=== PATIENT | female | born 2000 | race Caucasian/White ===

== ENCOUNTER → 2019-06-12 | Outpatient (CLI) | payer OTHER, BC ==
[~2019-06-12] MED LIST: CEFD300 PO; CEFT18SU PO; IBUP200; TYLENOL FLU; Vitafol-Ob+Dha1 EACH PO; [UNRECOGNIZED DRUG - OTHER]
== END | disposition home or self-care (01) ==
LOC: LAB SHORT 10:50 → LAB EV 10:50
DX: N39.0 Urinary tract infection, site not specified (principal)
CPT/HCPCS: 87077; 87086; 87186

== ENCOUNTER 2019-06-13 16:58 | Inpatient (IN) | payer OTHER, BC ==
[~2019-06-13] VITALS: Ht 157.5 cm; Wt 87.8 kg
[~2019-06-13 16:58] MED LIST changes: -CEFD300 PO
[2019-06-13] MEDS ORDERED: CEFD300 PO (19:31)
--- NOTE | 2019-06-14 06:27 | NUR ---
SHIFT SUMMARY PT NEW ADMIT THIS AM. AAOX4. NPO. DISCOMFORT CONTROLLED WITH 1MG IV DILAUDID Q2P. NO NAUSEA/EMESIS SINCE ARRIVAL TO FLOOR. ORIENTED TO ROOM + CALL LIGHT USE. INDEPENDENT IN ROOM. MOTHER + SIGNIFICANT OTHER AT BEDSIDE THIS AM. SURGICAL PACKET ON FRONT OF CHART. PT RESTING AT THIS TIME WITH CALL LIGHT IN REACH.
--- NOTE | 2019-06-14 10:48 | NUR ---
06/14/19 1048 Keren Martinez PT ON SCHEDULED ANTIBIOTICS
--- NOTE | 2019-06-14 15:47 | NUR ---
SHIFT SUMMARY PT A&OX4, VSS, S/P LAP REKHA, 4 SITES, SYDNEE DRAIN SEROSANG 120 MLS OUT. PAIN MANAGED WITH 1 MG DILAUDID. LUNA PO, DENIES N&V. AWAITING POST OP VOID. IMAGES REQUESTED TO BE COPIED AND PUSHED TO [facility]; AWAITING ORDER TO TRANSFER PT FOR ERCP. FAMILY AT BEDSIDE.
--- NOTE | 2019-06-14 17:55 | NUR ---
PT TRANSFERRED TO [facility] #[id number], REPORT CALLED TO CHANI SILVERMAN [phone].
[2019-06-15 07:07] LABS: HBSAG SCREEN Negative (Negative); HEP A AB, IGM Negative (Negative); HEP B CORE AB, IGM Negative (Negative); HEP C VIRUS AB <0.1 (0.0-0.9)
== END 2019-06-14 17:57 | disposition home or self-care (01) | DRG 419 ==
LOC: ER 16:58 → SURS 21:18
PROVIDERS: Physician Assistant; ADMIT Surgery
PROC: BF03YZZ Plain Radiography of Gallbladder and Bile Ducts using Other Contrast (ICD-10-PCS; 2019-06-14)
PROC: 0FT44ZZ Resection of Gallbladder, Percutaneous Endoscopic Approach (ICD-10-PCS; principal; 2019-06-14 09:00)
DX: K80.70 Calculus of gallbladder and bile duct without cholecystitis without obstruction (principal); E80.6 Other disorders of bilirubin metabolism; Z91.018 Allergy to other foods; Z91.010 Allergy to peanuts
CPT/HCPCS: 36415; 74300; 76705; 80074; 81025; 86308; C1729; C1894; J1100; J1170; J1885; J2250; J2405; J2543; J2704; J2765; J3010; J7030; J7120

== ENCOUNTER → 2019-06-13 | Outpatient (CLI) | payer OTHER, BC ==
[2019-06-13 16:11] LABS: Alanine Aminotransfer (ALT/SGP 884 U/L (12-78); Albumin, Blood 3.9 g/dL (3.4-5.0); Albumin/Globulin Ratio 0.9 (0.8-1.8); Alk Phos 188 U/L (40-126); Anion Gap 12 mmol/L (6-16); Aspartate Aminotrans (AST/SGOT 461 U/L (12-37); Blood Urea Nitrogen 6 mg/dL (8-24); Bun/Creatinine Ratio 7.7 (12.0-20.0); CO2, Blood 26 mmol/L (21-32); Calcium, Blood 9.1 mg/dL (8.5-10.1); Chloride, Blood 105 mmol/L (98-108); Creatinine, Blood 0.78 mg/dL (0.40-1.00); Globulin, Blood 4.4 g/dL (2.2-4.0); Glomerular Filtration Rate >60 (60-); Glucose, Blood 107 mg/dL (70-99); Potassium, Blood 3.9 mmol/L (3.5-5.5); Sodium, Blood 143 mmol/L (136-145); Total Protein, Blood 8.3 g/dL (6.4-8.2)
[2019-06-13 16:39] LABS: BASOPHILS ABSOLUTE AUTO 0.08 K/mm3 (0.00-0.23); BASOPHILS PERCENT AUTO 1 % (0-2); EOSINOPHILS PERCENT AUTO 1 % (0-6); Hematocrit 47.2 % (33.0-51.0); Hemoglobin 15.4 g/dL (11.5-16.0); IMMATURE GRAN ABSOLUTE AUTO 0.03 K/mm3 (0.00-0.10); IMMATURE GRAN PERCENT AUTO 0 % (0-1); LYMPHOCYTES ABSOLUTE AUTO 0.87 K/mm3 (0.84-5.20); LYMPHOCYTES PERCENT AUTO 9 % (21-46); MONOCYTES ABSOLUTE AUTO 0.67 K/mm3 (0.16-1.47); MONOCYTES PERCENT AUTO 7 % (4-13); Mean Corpuscular HGB 26.2 pg (26.0-34.0); Mean Corpuscular HGB Conc 32.6 g/dL (31.5-36.5); Mean Corpuscular Volume 80 fL (80-100); Mean Platelet Volume 10.2 fL (9.1-12.4); NEUTROPHILS ABSOLUTE AUTO 8.44 K/mm3 (1.96-9.15); NEUTROPHILS PERCENT AUTO 83 % (41-73); Platelet Count 309 K/mm3 (150-400); RDW Coefficient Variation 14.2 % (11.7-14.2); RDW Standard Deviation 41.1 fL (35.1-46.3); Red Blood Cell Count 5.87 M/mm3 (3.80-5.20); White Blood Cell Count 10.19 K/mm3 (4.00-11.30)
[2019-06-13 16:53] LABS: Bilirubin, Direct 4.4 mg/dL (0.0-0.3)
== END | disposition home or self-care (01) ==
LOC: LAB EV 15:58 → LAB SHORT 15:58
PROVIDERS: General Practice
DX: R10.9 Unspecified abdominal pain (principal); R74.8 Abnormal levels of other serum enzymes
CPT/HCPCS: 80053; 82248; 83690; 85025

== ENCOUNTER → 2021-05-25 | Outpatient (CLI) | payer OTHER, BC ==
[~2021-05-25] MED LIST changes: +CEFD300 PO
[2021-05-25 19:59] LABS: BASOPHILS ABSOLUTE AUTO 0.06 K/mm3 (0.00-0.23); BASOPHILS PERCENT AUTO 1 % (0-2); EOSINOPHILS PERCENT AUTO 3 % (0-6); Hematocrit 44.1 % (33.0-51.0); Hemoglobin 14.3 g/dL (11.5-16.0); IMMATURE GRAN ABSOLUTE AUTO 0.03 K/mm3 (0.00-0.10); IMMATURE GRAN PERCENT AUTO 0 % (0-1); LYMPHOCYTES ABSOLUTE AUTO 3.06 K/mm3 (0.84-5.20); LYMPHOCYTES PERCENT AUTO 30 % (21-46); MONOCYTES ABSOLUTE AUTO 0.68 K/mm3 (0.16-1.47); MONOCYTES PERCENT AUTO 7 % (4-13); Mean Corpuscular HGB 26.7 pg (26.0-34.0); Mean Corpuscular HGB Conc 32.4 g/dL (31.5-36.5); Mean Corpuscular Volume 82 fL (80-100); Mean Platelet Volume 10.8 fL (9.1-12.4); NEUTROPHILS ABSOLUTE AUTO 6.18 K/mm3 (1.96-9.15); NEUTROPHILS PERCENT AUTO 60 % (41-73); Platelet Count 290 K/mm3 (150-400); RDW Standard Deviation 38.9 fL (35.1-46.3); Red Blood Cell Count 5.35 M/mm3 (3.80-5.20); White Blood Cell Count 10.31 K/mm3 (4.00-11.30)
[2021-05-25 20:32] LABS: Percent Saturation 13.8 % (15.0-50.0)
[2021-05-25 20:35] LABS: Alanine Aminotransfer (ALT/SGP 29 U/L (12-78); Albumin, Blood 3.8 g/dL (3.4-5.0); Alk Phos 88 U/L (50-136); Anion Gap 5 mmol/L (6-16); Aspartate Aminotrans (AST/SGOT 20 U/L (12-37); Bilirubin, Total 0.5 mg/dL (0.1-1.0); Blood Urea Nitrogen 9 mg/dL (8-24); Bun/Creatinine Ratio 13.8 (12.0-20.0); CO2, Blood 24 mmol/L (21-32); Chloride, Blood 110 mmol/L (98-108); Creatinine, Blood 0.65 mg/dL (0.40-1.00); Free Thyroxine 1.18 ng/dL (0.70-1.60); Globulin, Blood 3.8 g/dL (2.2-4.0); Glomerular Filtration Rate >60 (60-); Glucose, Blood 90 mg/dL (70-99); Potassium, Blood 3.7 mmol/L (3.5-5.5); Sodium, Blood 139 mmol/L (136-145); Total Protein, Blood 7.6 g/dL (6.4-8.2)
== END | disposition home or self-care (01) ==
LOC: LAB SHORT 19:33
PROVIDERS: Chiropractor
DX: Z83.49 Family history of other endocrine, nutritional and metabolic diseases (principal)
CPT/HCPCS: 80053; 82728; 83540; 83550; 84439; 84443; 85025

== ENCOUNTER → 2021-09-30 | Outpatient (CLI) | payer BC | END | disposition home or self-care (01) | LOC: LAB SHORT 16:56 | DX: N39.0 Urinary tract infection, site not specified (principal) | CPT/HCPCS: 87086 ==

== ENCOUNTER → 2023-02-27 | Outpatient (CLI) | payer BC ==
[2023-02-27 14:03] LABS: Candida species (DNA Probe) Negative (NEGATIVE); G. vaginalis (DNA Probe) Negative (NEGATIVE); T. vaginalis (DNA Probe) Negative (NEGATIVE)
[2023-03-01 17:12] LABS: CHLAMYDIA BY NAA Negative (Negative); GONOCOCCUS BY NAA Negative (Negative); TRICH VAG BY NAA Negative (Negative)
== END ==
LOC: LAB SHORT 12:46 → LAB 12:46
PROVIDERS: Physician Assistant
DX: R30.0 Dysuria (principal); N89.8 Other specified noninflammatory disorders of vagina
CPT/HCPCS: 87077; 87086; 87186; 87480; 87491; 87510; 87591; 87660; 87661

== ENCOUNTER 2024-06-28 17:04 | Observation (INO) | payer OTHER ==
[~2024-06-28] VITALS: Ht 157.5 cm; Wt 97.7 kg
[2024-06-28 17:36] LABS: BASOPHILS ABSOLUTE AUTO 0.04 K/mm3 (0.00-0.23); BASOPHILS PERCENT AUTO 0 % (0-2); EOSINOPHILS ABSOLUTE AUTO 0.09 K/mm3 (0.00-0.68); EOSINOPHILS PERCENT AUTO 1 % (0-6); Hematocrit 43.7 % (33.0-51.0); Hemoglobin 14.4 g/dL (11.5-16.0); IMMATURE GRAN ABSOLUTE AUTO 0.03 K/mm3 (0.00-0.10); IMMATURE GRAN PERCENT AUTO 0 % (0-1); LYMPHOCYTES ABSOLUTE AUTO 1.23 K/mm3 (0.84-5.20); LYMPHOCYTES PERCENT AUTO 9 % (21-46); MONOCYTES ABSOLUTE AUTO 0.47 K/mm3 (0.16-1.47); MONOCYTES PERCENT AUTO 4 % (4-13); Mean Corpuscular Volume 85 fL (80-100); NEUTROPHILS ABSOLUTE AUTO 11.67 K/mm3 (1.96-9.15); NEUTROPHILS PERCENT AUTO 86 % (41-73); Platelet Count 298 K/mm3 (150-400); RDW Coefficient Variation 12.9 % (11.7-14.2); Red Blood Cell Count 5.14 M/mm3 (3.80-5.20); White Blood Cell Count 13.53 K/mm3 (4.00-11.30)
[2024-06-28 17:54] LABS: Albumin, Blood 3.5 g/dL (3.4-5.0); Albumin/Globulin Ratio 0.9 (0.8-1.8); Bilirubin, Total 0.7 mg/dL (0.1-1.0); Bun/Creatinine Ratio 13.5 (12.0-20.0); Calcium, Blood 8.4 mg/dL (8.5-10.1); Creatinine, Blood 0.67 mg/dL (0.40-1.00); Globulin, Blood 3.7 g/dL (2.2-4.0); Potassium, Blood 3.6 mmol/L (3.5-5.5); Total Protein, Blood 7.2 g/dL (6.4-8.2)
[2024-06-28] MEDS ORDERED: Piperacillin/Tazobactam Sod 3.375 GM in NS 100 ML IV ONE (18:15)
[2024-06-28] MEDS ORDERED: Ketorolac Tromethamine 15mg Vial IV ONE (18:20)
[2024-06-28] MEDS ORDERED: Ondansetron HCl 2 MG / ML 2ML Vial IV PRN (18:25)
[2024-06-28] MEDS ORDERED: Lactated Ringer's 1,000 ML IV SCH ×2 (18:25→20:55)
[2024-06-28] MEDS ORDERED: HYDROmorphone HCl/Pf 1MG SYR IV PRN ×2 (18:25→20:50)
[2024-06-28] MEDS ORDERED: Lactated Ringer's 1,000 ML IV ONE (18:37)
[2024-06-28 20:21] LABS: Source, Urine Clean Catch
[2024-06-28 20:23] VITALS: BP 128/85
[2024-06-28 20:28] LABS: Appearance, Urine Hazy (Clear); Bilirubin, Urine Neg (Neg); Blood, Urine 5+ (Neg); Color, Urine Amber (P-Yellow); Glucose Qualitative, Urine Neg (Neg); Ketones, Urine 1+ (Neg); Leukocyte Esterase, Urine 3+ (Neg); Nitrite, Urine Neg (Neg); Protein, Urine 2+ (Neg); Specific Gravity, Urine 1.005 (1.003-1.022); Urobilinogen, Urine NORM (Normal)
[2024-06-28 20:37] LABS: Bacteria Few /hpf; Red Blood Cells, Urine 50-100 /hpf (0-2); Squamous Epithelial Cells Few /hpf (Few)
[2024-06-29] VITALS (16 sets, daily range): BP systolic 93–124; BP diastolic 62–76
[2024-06-29] MEDS ORDERED: Piperacillin/Tazobactam Sod 3.375 GM in NS 100 ML IV SCH
--- NOTE | 2024-06-29 04:27 | NUR ---
SHIFT SUMMARY ERIC WAS ALERT AND FULLY ORIENTED WHEN SHE ARRIVED FROM THE ED. PT ABLE TO TRANSFER INDEPENDENTLY TO BED. C/O PAIN TO RLQ ABD, WELL CONTOLLED WITH CURRENT MEDS. PT REPORTS SOME NAUSEA T/O SHIFT, RESOLVED SOPHIA FARLEY. ADMIT COMPLETE, DR. LEUNG CONSULTED. PT RESTING IN BED WITH CALL LIGHT IN REACH AND MOTHER AT PT BEDSIDE.
[2024-06-29] MEDS ORDERED: OxyCODONE HCL 5 MG TAB PO PRN (07:40)
[2024-06-29] MEDS ORDERED: Acetaminophen 325 MG TABLET PO PRN (07:40)
[2024-06-29] MEDS ORDERED: FLU VACC TS2024-25(6MOS UP)/PF 45 MCG/0.5 ML SYRINGE IM SCH (07:40)
[2024-06-29] MEDS ORDERED: Ondansetron HCl 2 MG / ML 2ML Vial IV PRN (07:40)
[2024-06-29] MEDS ORDERED: Ketorolac Tromethamine 15mg Vial IV PRN (07:45)
[2024-06-29] MEDS ORDERED: Prochlorperazine Edisylate 10 mg Vial IV PRN (08:40)
[2024-06-29] MEDS ORDERED: Metoclopramide HCl 5MG / ML 2ML Vial IV PRN (08:40)
--- NOTE | 2024-06-29 09:09 | NUR ---
MORNING NOTE THIS RN ASSUMED CARE AT APPROX 0715. PATIENT ALERT AND ORIENTED X4. COMMUNICATING NEEDS EFFECTIVELY. INDEPENDENT IN ROOM. VSS. TOLERATING ROOM AIR, SATs >90%. RR EVEN, UNLABORED. IS BEGINNING TO REPORT AN INCREASE IN RLQ ABD PAIN - 05/14. MEDICATED PER EMAR WITH IV DILAUDID, PAIN HAS DECREASED SOME 03/14. REPORTING AN INCREASE IN NAUSEA - HOSPITALIST ROUNDING IN ROOM. NEW ORDERS IN PLACE FOR IV REGLAN AND COMPAZINE - MEDICATED PER EMAR WITH IV COMPAZINE WITH REPORTED RELIEF. PLAN FOR REMOVAL OF APPENDIX TODAY - NPO SINCE MIDNIGHT. IV INFUSING PER EMAR. WILL CONTINUE TO MONITOR. CALL LIGHT IN REACH. PATIENTs MOTHER AT BEDSIDE.
[2024-06-29] MEDS ORDERED: Fluconazole 100 MG Tab PO ONE (11:25)
--- NOTE | 2024-06-29 13:59 | NUR ---
PATIENT NOTABLY FLUSHED - ORAL TEMP OBTAINED SHOWING 101.0. PO TYLENOL ADMINISTERED PER EMAR. MD EPPS UPDATED. TEMP 101.6 UPON REASSESSMENT. WILL CONTINUE TO MONITOR.
[2024-06-29] MEDS ORDERED: Bupivacaine 0.5% HCl 5 MG/ML 30MLVIAL ONE (14:40)
[2024-06-29] MEDS ORDERED: Lactated Ringer's 1,000 ML IV SCH (14:45)
--- NOTE | 2024-06-29 15:00 | NUR ---
PATIENT TRANSFERRED OFF UNIT VIA GURNEY FOR PROCEDURE
--- NOTE | 2024-06-29 15:21 | NUR ---
PRE PROCEDURE NOTE PT TO DSU ON SERA. PT A&OX4, BREATHING RA, NO COMPLAINTS. Patient up to Ambulate independently. Gait steady. Patient confirms NPO status and agrees with scheduled surgery. Pre-Op teaching done. Pt verbalizes understanding. PT UNABLE TO REMOVE TOE RING FROM L FOOT, ALL OTHER PIERCINGS REMOVED. AT BEDSIDE.
[2024-06-29] MEDS ORDERED: Rocuronium Bromide 10 MG/ML 5ML Injection IV ONE (15:46)
[2024-06-29] MEDS ORDERED: Lidocaine HCl 2% 20 ML MDV ONE (15:46)
[2024-06-29] MEDS ORDERED: Dexamethasone Sod Phos 10 MG/ML 1ML VIAL ONE (15:46)
[2024-06-29] MEDS ORDERED: Ondansetron HCl 2 MG / ML 2ML Vial ONE (15:46)
[2024-06-29] MEDS ORDERED: Metoclopramide HCl 5MG / ML 2ML Vial ONE (15:46)
[2024-06-29] MEDS ORDERED: propofoL 20 ML IV ONE (15:46)
[2024-06-29] MEDS ORDERED: FentaNYL Citrate 50 MCG/ML 2 ML Injection ONE (16:01)
[2024-06-29] MEDS ORDERED: Sugammadex Sodium 200 MG/2ML SDV (100 MG/ML) ONE (16:46)
--- NOTE | 2024-06-29 17:52 | NUR ---
SHIFT SUMMARY/RETURN TO UNIT PATIENT RETURNED TO UNIT FROM PACU AT APPROX 1745. PATIENT LETHARGIC, EASILY AROUSABLE WITH VERBAL STIMULI. ANSWERS ORIENTATION QUESTIONS APPROPRIATELY - COMMUNICATES NEEDS EFFECTIVELY. TRANSFERRED FROM GURNEY TO BED WITH SLIDER SHEET. VSS. CURRENTLY ON 2L VIA NC, SATs >92%. RR SHALLOW, EVEN. S/P LAP APPY W/ X3 LAP SITES. SITES C/D/I. DENIES PAIN. DENIES NAUSEA/VOMITING - TOLERATING SMALL SIPS OF WATER. IVF INFUSING. CALL LIGHT IN REACH. PATIENTs MOTHER AT BEDSIDE. WILL CONTINUE TO MONITOR AND REPORT TO ONCOMING RN.
[2024-06-30 07:22] VITALS: BP 111/64
--- NOTE | 2024-06-30 07:23 | NUR ---
SHIFT SUMMARY NOC. PT POD 1 FOR LAP APPY. PT'S LAP SITES X3 ARE C/D/I WITH SLIGHT BRUISING DEVELOPING OVER SHIFT. PT DENIES PAIN/NAUSEA/VOMITING THIS SHIFT. PT MEDICATED WITH TYLENOL X1 FOR TEMP OF 100.3. TEMP AND HEART RATE IMPROVED T/O NIGHT. PT VOIDING URINE AND TOLERATING LIQUIDS AT THIS TIME. S.O OTHER AT BEDSIDE. CALL LIGHT IN REACH.
[2024-06-30] MEDS ORDERED: OXYC5 PO (08:40)
[2024-06-30] MEDS ORDERED: AMOCLA875 PO (08:49)
--- NOTE | 2024-06-30 09:18 | NUR ---
PRESCRIPTION CALL IN TO [facility] FOR AUGMENTIN FOR PATIENT. AUGMENTIN PO BID FOR 7 DAYS.
--- NOTE | 2024-06-30 09:23 | NUR ---
DISCHARGE NOTE THIS RN ASSUMED CARE AT APPROX 0715. PATIENT ALERT AND ORIENTED X4. COMMUNICATES NEEDS EFFECTIVELY. INDEPENDENT IN ROOM. S/P LAP APPY - X3 LAP SITES C/D/I. PAIN TOLERABLE. TOLERATING PO INTAKE. REPORTS FLATULENCE. VOIDING. VSS. ON ROOM AIR, SATs >90%. RR EVEN, UNLABORED. MD EPPS TO BEDSIDE THIS MORNING - DC HOME ORDERED. IV REMOVED. DC EDUCATION PROVIDED - PATIENT STATES UNDERSTANDING. SIGNIFICANT OTHER AT BEDSIDE - RECEPTIVE TO EDUCATION. HARD SCRIPT FOR NARCOTIC PROVIDED TO PATIENTs MOTHER YESTERDAY. ANTIBIOTIC CALLED IN TO [facility] BY SHEET TESTER ERIC. PATIENT TRANSFERRED OFF UNIT TO PERSONAL VEHICLE VIA WHEELCHAIR AT APPROX 0925. PERSONAL BELONGINGS WITH PATIENT.
== END 2024-06-30 09:24 | disposition home or self-care (01) ==
LOC: ER 17:04 → ERHOLD 18:22 → SURS 18:22 → ERHOLD 18:22 → SURS 19:45
PROVIDERS: Physician Assistant; Surgery; ADMIT Surgery
PROC: 0DTJ0ZZ Resection of Appendix, Open Approach (ICD-10-PCS; principal; 2024-06-29 15:30)
DX: K35.33 Acute appendicitis with perforation, localized peritonitis, and gangrene, with abscess (principal); Z91.010 Allergy to peanuts
CPT/HCPCS: 74177; 80053; 81001; 84703; 85025; 87086; 88304; 96361; 96365; 96365-59; 96366; 96375; 96376; 99285-25; A9270; G0378; J0780; J1100; J1171; J1885; J2405; J2543; J2704; J2765; J3010; J7120; Q9967

== ENCOUNTER 2024-07-01 10:29 | Emergency (ER) | payer OTHER ==
[~2024-07-01] VITALS: Ht 157.5 cm; Wt 96.2 kg
[~2024-07-01 10:29] MED LIST changes: +AMOCLA875 PO; +OXYC5 PO
[2024-07-01 11:14] LABS: BASOPHILS ABSOLUTE AUTO 0.03 K/mm3 (0.00-0.23); BASOPHILS PERCENT AUTO 0 % (0-2); EOSINOPHILS ABSOLUTE AUTO 0.07 K/mm3 (0.00-0.68); EOSINOPHILS PERCENT AUTO 1 % (0-6); Hematocrit 40.5 % (33.0-51.0); Hemoglobin 13.3 g/dL (11.5-16.0); IMMATURE GRAN ABSOLUTE AUTO 0.06 K/mm3 (0.00-0.10); IMMATURE GRAN PERCENT AUTO 1 % (0-1); LYMPHOCYTES ABSOLUTE AUTO 1.16 K/mm3 (0.84-5.20); LYMPHOCYTES PERCENT AUTO 10 % (21-46); MONOCYTES PERCENT AUTO 6 % (4-13); Mean Corpuscular HGB 28.2 pg (26.0-34.0); Mean Corpuscular HGB Conc 32.8 g/dL (31.5-36.5); Mean Corpuscular Volume 86 fL (80-100); Mean Platelet Volume 10.2 fL (9.1-12.4); NEUTROPHILS ABSOLUTE AUTO 10.04 K/mm3 (1.96-9.15); NEUTROPHILS PERCENT AUTO 83 % (41-73); Platelet Count 277 K/mm3 (150-400); RDW Coefficient Variation 13.4 % (11.7-14.2); RDW Standard Deviation 42.5 fL (35.1-46.3); Red Blood Cell Count 4.72 M/mm3 (3.80-5.20); White Blood Cell Count 12.06 K/mm3 (4.00-11.30)
[2024-07-01 11:39] LABS: Albumin, Blood 2.8 g/dL (3.4-5.0); Albumin/Globulin Ratio 0.7 (0.8-1.8); Bilirubin, Total 0.9 mg/dL (0.1-1.0); Bun/Creatinine Ratio 7.4 (12.0-20.0); Calcium, Blood 8.5 mg/dL (8.5-10.1); Creatinine, Blood 0.81 mg/dL (0.40-1.00); Globulin, Blood 4.2 g/dL (2.2-4.0); Potassium, Blood 3.3 mmol/L (3.5-5.5)
[2024-07-01] MEDS ORDERED: Ampicillin Sod/Sulbactam Sod 3 GM in NS 100 ML IV ONE (14:30)
[2024-07-01] MEDS ORDERED: NS 1,000 ML IV SCH ×2 (14:30→14:40)
[2024-07-01] MEDS ORDERED: HYDROmorphone HCl/Pf 1MG SYR IV ONE (14:30)
[2024-07-01] MEDS ORDERED: Ondansetron HCl 2 MG / ML 2ML Vial IV ONE (14:30)
[2024-07-01] MEDS ORDERED: Ondansetron HCl 2 MG / ML 2ML Vial IV PRN (14:40)
[2024-07-01] MEDS ORDERED: HYDROmorphone HCl/Pf 1MG SYR IV PRN (14:40)
[2024-07-01 16:30] VITALS: BP 135/79
== END 2024-07-01 16:36 | disposition home or self-care (01) ==
LOC: ER 10:29
PROVIDERS: Physician Assistant
DX: T81.41XA Infection following a procedure, superficial incisional surgical site, initial encounter (principal); L02.211 Cutaneous abscess of abdominal wall; Z91.010 Allergy to peanuts; Z91.018 Allergy to other foods; Z79.899 Other long term (current) drug therapy
CPT/HCPCS: 74177; 80053; 83735; 84703; 85025; 96365; 96375; 99284-25; J0295; J1171; J2405; J7030; Q9967